=== PATIENT | male | born 1985 | race Hispanic/Latino ===

== ENCOUNTER 2023-07-21 22:14 | Emergency (ER) | payer SELFPAY ==
[2023-07-22] MEDS ORDERED: Ketorolac Tromethamine 30 MG/ML VIAL ONE (01:49)
[2023-07-22] MEDS ORDERED: cefTRIAXone (ROCEPHIN) 2 GM VIAL ONE (01:49)
[2023-07-22] MEDS ORDERED: Morphine 4 MG/ML VIAL ONE (01:49)
[2023-07-22] MEDS ORDERED: Lidocaine 1% w/Epinephrine 1:100K 20 ML VIAL ONE (02:59)
== END 2023-07-22 03:45 | disposition home or self-care (01) ==
LOC: ERS 22:14
DX: S06.0X0A Concussion without loss of consciousness, initial encounter (principal); S01.112A Laceration without foreign body of left eyelid and periocular area, initial encounter; E11.9 Type 2 diabetes mellitus without complications; I10 Essential (primary) hypertension; Z79.84 Long term (current) use of oral hypoglycemic drugs; W50.0XXA Accidental hit or strike by another person, initial encounter; Y93.66 Activity, soccer
CPT/HCPCS: 12013; 70450; 70486; 96374; 96375; J0696; J1885; J2270

== ENCOUNTER 2023-08-01 11:44 | Emergency (ER) | payer SELFPAY | END 2023-08-01 12:52 | disposition home or self-care (01) | LOC: ERS 11:44 | DX: S01.112D Laceration without foreign body of left eyelid and periocular area, subsequent encounter (principal); W18.30XD Fall on same level, unspecified, subsequent encounter ==

== ENCOUNTER 2024-07-24 16:45 | Emergency (ER) | payer OTHER, SELFPAY | END 2024-07-24 20:24 | disposition home or self-care (01) | LOC: ERS 16:45 | DX: R04.0 Epistaxis (principal); E11.9 Type 2 diabetes mellitus without complications; I10 Essential (primary) hypertension | CPT/HCPCS: 30901; 99282 ==